=== PATIENT | female | born 1955 | race Caucasian/White ===

== ENCOUNTER 2023-10-20 01:55 | Inpatient (IN) | payer MEDICARE ==
[2023-10-20] MEDS ORDERED: NITROGLYCERIN SL TABS 0.4 MG TAB SUBLINGUAL PRN ×3 (01:58→03:49)
--- NOTE | 2023-10-20 02:00 | ED ---
Chest Pain HPI - General Stated Complaint: STEMI Time Seen by Provider: 10/20/23 01:58 - History of Present Illness Initial Comments: Patient is a 68-year-old female with a history of hypertension, hyperlipidemia, diabetes and obesity. Patient presents to the ER today via ambulance for STEMI. Patient woke from sleep with chest pain that radiated to her back, pain was severe associated with diaphoresis and lightheadedness. EMS was called and performed an EKG which was concerning for an anterior CO. Patient received aspirin and nitro with some improvement in her pain. Upon arrival to the ER patient is complaining of pain in her chest no longer having any pain in the back. - Related Data Allergies Allergy/AdvReac Type Severity Reaction Status Date / Time No Known Allergies Allergy Verified 10/20/23 02:02 Review of Systems ROS Statement: Those systems with pertinent positive or pertinent negative responses have been documented in the HPI. ROS Other: All systems not noted in ROS Statement are negative. EKG Findings - EKG Comments: EKG Findings:: EKG interpreted by me, EKG obtained at 2:02 AM, rate of 69 rhythm is sinus, PA 171 QRS 145 QTc 467. There are significant ST elevations in V2 through V6, no reciprocal ST depressions. There is a bifascicular block. This EKG is concerning for acute infarction. No previous EKG for comparison General Exam Limitations: no limitations General appearance: alert Head exam: Present: atraumatic, normocephalic Eye exam: Present: normal appearance ENT exam: Present: normal exam Neck exam: Present: normal inspection Respiratory exam: Absent: respiratory distress Cardiovascular Exam: Present: regular rate GI/Abdominal exam: Present: soft. Absent: distended Extremities exam: Present: full ROM, normal capillary refill. Absent: pedal edema Back exam: Present: normal inspection Neurological exam: Present: alert, oriented X3 Psychiatric exam: Present: normal affect, normal mood, other (Appropriate situational anxiety) Skin exam: Present: diaphoretic Course Vital Signs 10/20/23 10/20/23 01:57 02:02 Temperature 98.8 F Pulse Rate 80 73 Respiratory 20 18 Rate Blood Pressure 141/92 147/95 O2 Sat by Pulse 97 97 Oximetry Chest Pain MDM - Core Measures AMI Core Measures Followed: Yes - Differential Diagnosis AMI - MDM Was pt. sent in by a medical professional or institution (, PA, [employer], urgent care, hospital, or fdc...) When possible be specific @ -No Did you speak to anyone other than the patient for history (EMS, parent, family, police, friend...)? What history was obtained from this source @ -No Did you review nursing and triage notes (agree or disagree)? Why? @ -I reviewed and agree with nursing and triage notes Were old charts reviewed (outside hosp., previous admission, EMS record, old EKG, old radiological studies, urgent care reports/EKG's, fdc records)? Report findings @ -No old charts were reviewed Differential Diagnosis (chest pain, altered mental status, abdominal pain women, abdominal pain men, vaginal bleeding, weakness, fever, dyspnea, syncope, headache, dizziness, GI bleed, back pain, seizure, CVA, palpatations, mental health)? @ -Not applicable EKG interpreted by me (3pts min.). @ -As above X-rays interpreted by me (1pt min.). @ -No widened mediastinum no pneumothorax CT interpreted by me (1pt min.). @ -None done U/S interpreted by me (1pt. min.). @ -None done What testing was considered but not performed or refused? (CT, X-rays, U/S, labs)? Why? @ -None What meds were considered but not given or refused? Why? @ -None Did you discuss the management of the patient with other professionals (professionals i.e. , LACHELLE, [employer], lab, RT, psych nurse, 7th grade social studies teacher, basket person, teacher, electronic intelligence officer, shelter case manager)? Give summary @ -Discussed with concrete stone fabricating supervisor Dr. Gomes, [facility] Was smoking cessation discussed for >3mins.? @ -No Was critical care preformed (if so, how long)? @ -Yes 17 Were there social determinants of health that impacted care today? How? (Homelessness, low income, unemployed, alcoholism, drug addiction, transportati on, low edu. Level, literacy, decrease access to med. care, snf, rehab)? @ -No Was there de-escalation of care discussed even if they declined (Discuss DNR or withdrawal of care, Hospice)? DNR status @ -No What co-morbidities impacted this encounter? (DM, HTN, Smoking, COPD, CAD, Cancer, CVA, ARF, Chemo, Hep., AIDS, mental health diagnosis, sleep apnea, morbid obesity)? @ -Diabetes, hypertension, hyperlipidemia, obesity Was patient admitted / discharged? Hospital course, mention meds given and route, prescriptions, significant lab abnormalities, going to OR and other pertinent info. @ -Admit EMS transmitted EKG concerning for STEMI, findings were discussed with on-call concrete stone fabricating supervisor Dr. Gomes who recommends activation of the [employer] [employer] A code STEMI was called at 0141 and the crime lab analyst was activated. The patient was immediately placed in a monitored bed, and IV was placed prior to arrival, and the EKG was evaluated. The ECG revealed an acute ST elevation myocardial infarction. Defibrillator pads were placed on the patient. The patient was given Aspirin prior to arrival After a chest x-ray was performed which showed no mediastinal widening IV heparin was given based on the patients weight. The patient had normal hemodynamics during the ED course and was taken directly to the cardiac crime lab analyst. Team available in [facility] 3, heparin was initiated in the ER patient had received aspirin and nitro by EMS Patient awake alert oriented neurovascularly intact upon transport to [facility] Undiagnosed new problem with uncertain prognosis? @ -Yes Drug Therapy requiring intensive monitoring for toxicity (Heparin, Nitro, Insulin, Cardizem)? @ -Yes, heparin Were any procedures done? @ -No Diagnosis/symptom? @ -STEMI Acute, or Chronic, or Acute on Chronic? @ -Acute Uncomplicated (without systemic symptoms) or Complicated (systemic symptoms)? @ -Default Side effects of treatment? @ -No Exacerbation, Progression, or Severe Exacerbation? @ -No Poses a threat to life or bodily function? How? (Chest pain, [place], CO, pneumonia, PE, COPD, DKA, ARF, appy, cholecystitis, CVA, Diverticulitis, Homicidal, Suicidal, threat to staff... and all critical care pts) @ -Yes Disposition Clinical Impression: ST elevation myocardial infarction (STEMI) Disposition: ADMITTED IP TO THIS HOSP Condition: Serious Is patient prescribed a controlled substance at d/c from ED?: No
[2023-10-20] MEDS: HEPARIN SOD,PORK IN 0.45% NACL 25,000 UNIT in 0.45% NACL 1 250ML.BAG IV SCH (02:08)
[2023-10-20] MEDS: HEPARIN SODIUM 1,000 UN/ML (10ML VL) IV ONE ×2 (02:10→02:31)
[2023-10-20] MEDS ORDERED: LIDOCAINE 1% INJ 10MG/ML (20 ML MDV) ONE (02:19)
[2023-10-20] MEDS ORDERED: VERAPAMIL 2.5 MG/ML 2 ML AMP ONE (02:20)
[2023-10-20] MEDS ORDERED: fentaNYL (PF) 50 MCG/ML 2 ML AMP ONE (02:20)
--- NOTE | 2023-10-20 02:21 | XR ---
EXAMINATION TYPE: XR chest 1V portable DATE OF EXAM: 10/20/2023 COMPARISON: NONE HISTORY: Chest pain. TECHNIQUE: Single frontal view of the chest is obtained. FINDINGS: There is no focal air space opacity, pleural effusion, or pneumothorax seen. The cardiac silhouette size is within normal limits. The osseous structures are intact. Overlying EKG leads are seen. IMPRESSION: No acute process.
[2023-10-20] MEDS: LIDOCAINE 1% INJ 10MG/ML (20 ML MDV) SQ ONE (02:24)
[2023-10-20] MEDS: MIDAZOLAM 2 MG/2 ML VIAL IVP ONE ×2 (02:27→03:32)
[2023-10-20] MEDS: fentaNYL (PF) 50 MCG/ML 2 ML AMP IVP ONE (02:27)
[2023-10-20] MEDS: VERAPAMIL SYRINGE (5 MG/10 ML) INTRAARTER ONE (02:29)
[2023-10-20] MEDS ORDERED: HEPARIN SODIUM 1,000 UN/ML (10ML VL) ONE (02:31)
[2023-10-20] MEDS: SODIUM CHLORIDE 0.9% 1,000 ML IV ONE (02:34)
[2023-10-20] MEDS ORDERED: TICAGRELOR 90 MG TAB ONE (02:49)
[2023-10-20] MEDS: TICAGRELOR 90 MG TAB PO ONE (02:49)
[2023-10-20 02:53] LABS: Basophils % (A) 0 %; Eosinophils # (A) 0.4 k/uL (0-0.7); Eosinophils % (A) 3 %; HCT 34.4 % (34.0-46.0); HGB 11.5 gm/dL (11.4-16.0); Lymphocytes # (A) 2.7 k/uL (1.0-4.8); Lymphocytes % (A) 21 %; MCH 31.6 pg (25.0-35.0); MCHC 33.4 g/dL (31.0-37.0); MCV 94.5 fL (80.0-100.0); Mean Platelet Volume 7.7; Monocytes # (A) 0.7 k/uL (0-1.0); Monocytes % (A) 5 %; Neutrophils # (A) 8.9 k/uL (1.3-7.7); Neutrophils % (A) 69 %; Platelet Count 266 k/uL (150-450); RBC 3.64 m/uL (3.80-5.40); RDW 13.2 % (11.5-15.5)
[2023-10-20] MEDS: IOPAMIDOL-370 100ML BTL INJ ONE ×2 (02:58→03:43)
[2023-10-20 03:09] LABS: INR 1.2 (<1.2); Prothrombin Time 12.6 sec (10.0-12.5)
[2023-10-20 03:11] LABS: Partial Thromboplastin Time 20.8 sec (22.0-30.0)
[2023-10-20 03:34] LABS: ALT 16 U/L (4-34); AST 20 U/L (14-36); African American GFR (CKD) >90 (>60 ml/min/1.73 sqM); Albumin 3.6 g/dL (3.5-5.0); Alkaline Phosphatase 102 U/L (38-126); Anion Gap 10 mmol/L; Blood Urea Nitrogen 16 mg/dL (7-17); Calcium 8.6 mg/dL (8.4-10.2); Carbon Dioxide 17 mmol/L (22-30); Chloride 111 mmol/L (98-107); Glucose 244 mg/dL (74-99); Non-African American GFR(CKD) 87 (>60 ml/min/1.73 sqM); Potassium 3.5 mmol/L (3.5-5.1); Sodium 138 mmol/L (137-145); Total Bilirubin 0.7 mg/dL (0.2-1.3); Total Protein 6.6 g/dL (6.3-8.2)
[2023-10-20] MEDS ORDERED: niCARdipine 25 MG/10 ML VIAL ONE (03:35)
[2023-10-20] MEDS: niCARdipine Syringe (1,000 mcg/10 mL) INTRACORON ONE (03:36)
[2023-10-20] MEDS ORDERED: RX INFO: IV CONTRAST WAS GIVEN 1 EACH MISC MISCELLANE PRN (03:49)
[2023-10-20] MEDS ORDERED: ATROPINE SULFATE 0.1 MG/ML 10ML SYRINGE IV PRN (03:49)
[2023-10-20] MEDS ORDERED: MAG HYDROX/AL HYDROX/SIMETH 30 ML CUP PO PRN (03:49)
--- NOTE | 2023-10-20 03:59 | P.PCN ---
Date of Procedure: 10/20/23 Operative Findings: PERCUTANEOUS CORONARY INTERVENTION Performing physician Jose Plata M.D. Procedure Performed: 1. Successful stenting of the mid LAD using 4.0 x 18 mm Xience drug-eluting stent which was post dilated using 4.5 mm noncompliant balloon with an excellent angiographic results. 2. Successful stending of the proximal LAD using 5.0 x 18 mm Xience drug-eluting stent which was postdilated using 5.5 mm noncompliant balloon with an excellent angiographic result. 3. Adjunctive use of manual thrombectomy, mechanical thrombectomy, and intravascular imaging Indication: Acute anterior ST elevation myocardial infarction. Please refer to diagnosed sick heart catheterization was performed by Dr. Patel. The heart catheterization revealed occluded LAD in the proximal portion with a large thrombus burden Approach: Right radial artery Complications: None Level of Sedation: Moderate with a sedation length of 65 minutes Procedure Discussion: After diagnostic coronary angiogram was performed which revealed occluded LAD with a large thrombus burden the decision was made towards percutaneous coronary intervention. I engaged the left main using JL 3.5 guiding catheter. Before that anticoagulation was initiated using heparin with continuous ACT monitoring. After that I did wire the LAD and cross the acute total occlusion using a run- through wire and the wire was positioned in the apical part of the LAD. Balloon angioplasty was performed using 3 mm balloon was performed was no flow was restored in the LAD. At that point I decided to go ahead and do thrombectomy using manual thrombectomy catheter. In spite of that I was unable to restore any flow to the LAD. At that point I decided to do mechanical thrombectomy. After that I was able to restore the flow to the left anterior descending artery. Subsequently 2 lesions were identified. The first one was in the mid LAD was about 80% and the second one in the proximal LAD and that was about also 80%. Intravascular ultrasound was performed and showed a diameter of the LAD in the midportion around 4 mm and proximally about 5 mm. Giving the difference in diameter and the distance between the 2 lesion I decided to go with 2 stents. In the mid LAD I deployed a 4.0 x 18 mm and proximally 5.0 x 18 mm. Please note that balloon angioplasty again was performed before stent deployment using 3.5 mm balloon. Intravascular ultrasound was performed again and showed that the stents in the mid and proximal LAD well opposed but not well expanded. I decided to post-dilate. In the mid LAD I postdilated using 4.5 mm balloon and the proximal LAD I postdilated using 5.5 mm balloon. Angiogram was performed and showed that the contrast from the stented segment in the proximal LAD was taking a few seconds to clear. I did intravascular imaging again and that showed that the stent was well opposed and well expanded. The procedure was completed was no complication. Postprocedure Management: 1. Dual antiplatelet therapy using aspirin and Brilinta for 12 months 2. Aggressive cholesterol control and risk factors modification 3. Obtain an echo to establish ejection fraction
[2023-10-20 04:11] LABS: Glucose,Whole Blood 232 mg/dL (70-110)
[2023-10-20] MEDS ORDERED: NALOXONE 0.4 MG/ML 1 ML VIAL IV PRN (04:16)
[2023-10-20] MEDS: SODIUM CHLORIDE 0.9% 1,000 ML in EMPTY BAG 1 BAG IV SCH (04:52)
--- NOTE | 2023-10-20 05:10 | CC ---
CARDIAC CATHETERIZATION REPORT INDICATIONS: Acute anterior wall myocardial infarction. PROCEDURE NOTE: After obtaining informed consent, left heart catheterization and coronary angiogram were performed via the right radial artery using standard Vickie catheters. The patient tolerated the procedure well without any obvious immediate complications. The patient received moderate conscious sedation. Total sedation time was 11 minutes. Right radial artery access was obtained using Seldinger technique. A 6-Hebrew sheath was placed. Catheters and wires were floated into the ascending aorta under fluoroscopic guidance. The patient received verapamil and I gave her an additional 1500 units of heparin. She already received heparin in the ER. FINDINGS: 1. Hemodynamics: Left ventricular end-diastolic pressure is 24 mm. There is no significant gradient across the aortic valve. 2. Left ventriculogram: Left ventriculogram was not performed. 3. Angiographic data: a.Right coronary artery: Right coronary artery is a large dominant vessel and is free of stenosis. b.Left main coronary artery is a normal-sized vessel and is free of stenosis. Divides into left anterior descending coronary artery and circumflex coronary artery. LAD is totally occluded just past large caliber diagonal branch. Circumflex coronary artery and its branches are free of significant stenosis. CONCLUSIONS: 100% occlusion of the mid LAD. PLAN: The patient will undergo emergent angioplasty with stent placement. MMODL / IJN: [id number] /
--- NOTE | 2023-10-20 05:10 | CONS ---
CONSULTATION CHIEF COMPLAINT: Chest pain. HISTORY OF PRESENT ILLNESS: This is a 68-year-old lady with history of [id number]-dncnaltey diabetes, who presented to hospital with sudden-onset chest pain over 1 hour duration. An EKG sent from the field showed ST-segment elevation NJ in the anterior leads and STEMI team was alerted and activated. I saw the patient for the 1st time in the wetlands conservation laborer. She appears hemodynamically stable, but continues to have chest pressure that she describes it as 8/10 in intensity and she is anxious. There is no prior history of coronary artery disease or congestive heart failure. The patient's EKG shows anterior wall myocardial infarction. She was advised to undergo emergent cardiac catheterization and angioplasty. PAST MEDICAL HISTORY: Significant for [id number]-nsxblzeig diabetes. ALLERGIES: None. FAMILY HISTORY: Negative for premature coronary artery disease. SOCIAL HISTORY: Negative for smoking, EtOH abuse or drug abuse. MEDICATIONS: Medication list is as charted. REVIEW OF SYSTEMS: review of systems has been performed. Pertinent are as documented in history of present illness. PHYSICAL EXAMINATION: GENERAL: The patient appears anxious, but alert, stable hemodynamically. NECK: There is no jugular venous distention. Carotid upstroke is normal. There is no bruit. CHEST: Reveals good air entry bilaterally. HEART: Reveals first and second heart sounds. No gallop. No murmur. ABDOMEN: Soft. EXTREMITIES: Did not reveal any edema. Peripheral pulses are felt. ASSESSMENT: Acute anterior wall myocardial infarction. PLAN: She will undergo emergent cardiac catheterization and primary angioplasty. MMODL / IJN: [id number] /
--- NOTE | 2023-10-20 05:10 | LTR ---
Dear Leodan, I performed cardiac catheterization on Jael Vu. A detailed catheterization note is enclosed in records. In brief, she presents to us with acute anterior wall myocardial infarction at around 2:00 a.m. on October 20, 2023, and underwent expeditious and emergent cardiac catheterization by me that showed totally occluded LAD, which will be expeditiously stented. Thank you for allowing us to participate in the care of this pleasant lady. MMJOSSE / FREYAN: [id number] /
[2023-10-20 06:06] LABS: Basophils % (A) 0 %; Eosinophils # (A) 0.1 k/uL (0-0.7); Eosinophils % (A) 1 %; HCT 42.5 % (34.0-46.0); HGB 13.7 gm/dL (11.4-16.0); Lymphocytes % (A) 8 %; MCH 30.7 pg (25.0-35.0); MCHC 32.2 g/dL (31.0-37.0); MCV 95.2 fL (80.0-100.0); Mean Platelet Volume 7.7; Monocytes # (A) 0.4 k/uL (0-1.0); Monocytes % (A) 4 %; Neutrophils # (A) 10.4 k/uL (1.3-7.7); Neutrophils % (A) 86 %; Platelet Count 192 k/uL (150-450); RBC 4.47 m/uL (3.80-5.40); RDW 13.4 % (11.5-15.5); WBC 12.1 k/uL (3.8-10.6)
[2023-10-20 08:07] LABS: African American GFR (CKD) >90 (>60 ml/min/1.73 sqM); Anion Gap 8 mmol/L; Blood Urea Nitrogen 16 mg/dL (7-17); Calcium 9.4 mg/dL (8.4-10.2); Carbon Dioxide 18 mmol/L (22-30); Chloride 113 mmol/L (98-107); Glucose 235 mg/dL (74-99); Magnesium 2.1 mg/dL (1.6-2.3); Non-African American GFR(CKD) 89 (>60 ml/min/1.73 sqM); Potassium 4.4 mmol/L (3.5-5.1); Sodium 139 mmol/L (137-145)
[2023-10-20] MEDS: lisinopriL 5 MG TAB PO SCH (08:18)
[2023-10-20] MEDS: ASPIRIN 81 MG PO SCH (08:18)
[2023-10-20] MEDS: METOPROLOL TARTRATE 25 MG TAB PO SCH (08:18)
[2023-10-20] MEDS: TICAGRELOR 90 MG TAB PO SCH (08:18)
--- NOTE | 2023-10-20 12:33 | CA ---
Transthoracic Echo Report Name: Jael Vu Age: 68 Gender: F : 1955 Exam Date: 10/20/2023 08:53 Exam Location: [facility] Ht (in): 67 Wt (lb): 262 Ordering Physician: Jose Plata MD ([id number]) Attending/Referring Phys: Financial Compliance Manager Julianne Hernandez RDCS Procedure CPT: Indications: ACS Cardiac Hx: 2 atents Technical Quality: Fair Contrast 1: Total Dose (mL): Contrast 2: Total Dose (mL): MEASUREMENTS (Male / Female) Normal Values 2D ECHO LV Diastolic Diameter PLAX 4.6 cm 4.2 - 5.9 / 3.9 - 5.3 cm LV Systolic Diameter PLAX 3.9 cm IVS Diastolic Thickness 1.1 cm 0.6 - 1.0 / 0.6 - 0.9 cm LVPW Diastolic Thickness 1.2 cm 0.6 - 1.0 / 0.6 - 0.9 cm LV Relative Wall Thickness 0.5 RV Internal Dim ED PLAX 3.6 cm LA Systolic Diameter LX 4.3 cm 3.0 - 4.0 / 2.7 - 3.8 cm LV Diastolic Volume MOD 4C 137.5 cm??? LV Systolic Volume MOD 4C 90.5 cm??? LV Ejection Fraction MOD 4C 34.2 % LV Cardiac Index MOD 4C 1412.1 cm???/min???m??? LV Diastolic Length 4C 8.8 cm LV Systolic Length 4C 7.8 cm LV Diastolic Volume MOD 2C 129.3 cm??? LV Systolic Volume MOD 2C 64.7 cm??? LV Ejection Fraction MOD 2C 49.9 % LV Cardiac Index MOD 2C 1941.1 cm???/min???m??? LV Diastolic Length 2C 9.5 cm LV Systolic Length 2C 8.4 cm LA Volume 76.3 cm??? 18 - 58 / 22 - 52 cm??? LA Volume Index 31.4 cm???/m??? 16 - 28 cm???/m??? M-MODE Aortic Root Diameter MM 3.2 cm MV E Point Septal Separation 0.7 cm AV Cusp Separation MM 2.2 cm DOPPLER AV Peak Velocity 117.3 cm/s AV Peak Gradient 5.5 mmHg MV Area PHT 3.0 cm??? Mitral E Point Velocity 92.1 cm/s Mitral A Point Velocity 96.9 cm/s Mitral E to A Ratio 1.0 MV Deceleration Time 251.1 ms MV E' Velocity 6.7 cm/s Mitral E to MV E' Ratio 13.8 TR Peak Velocity 221.9 cm/s TR Peak Gradient 19.7 mmHg Right Ventricular Systolic Press 23.8 mmHg FINDINGS Left Ventricle Left ventricular ejection fraction is estimated at 35-40 %. Left ventricular cavity size normal. Mid to distal anterior and anterolateral and apical wall akinesia. Thinning of apical wall. Right Ventricle Mild right ventricular dilatation. Right ventricular systolic pressure within normal limits. Right Atrium Normal right atrial size. Left Atrium Mild left atrial dilatation Mitral Valve Structurally normal mitral valve. Mitral annular calcification. Mild mitral regurgitation. Aortic Valve Trileaflet aortic valve. No aortic valve stenosis or regurgitation. Tricuspid Valve Structurally normal tricuspid valve. Mild tricuspid regurgitation. Pulmonic Valve Structurally normal pulmonic valve. No pulmonic regurgitation. Pericardium No pericardial effusion. Aorta Normal size aortic root and proximal ascending aorta. CONCLUSIONS Left ventricular ejection fraction is estimated at 35-40 %. Mid to distal anterior and anterolateral and apical wall akinesia. Thinning of apical wall. Mild right ventricular dilatation. Mild left atrial dilatation. Mild mitral regurgitation. No pericardial effusion. Previewed by: Dr Romel Finley (Electronically Signed) Final Date: 20 October 2023 12:32
[2023-10-20] MEDS ORDERED: DEXTROSE 50% SYRINGE 50 ML IVP PRN ×2 (13:46)
[2023-10-20] MEDS ORDERED: METOCLOPRAMIDE 5 MG/ML 2 ML VIAL IVP PRN (13:48)
[2023-10-20] MEDS ORDERED: ACETAMINOPHEN TAB 325 MG TAB PO PRN (13:49)
[2023-10-20] MEDS: PANTOPRAZOLE 40 MG/10 ML VIAL IVP SCH (14:28)
[2023-10-20] MEDS: DAPAGLIFLOZIN PROPANEDIOL 10 MG TABLET PO SCH (14:29)
[2023-10-20] MEDS: ONDANSETRON 4 MG/2 ML VIAL IVP PRN (14:29)
[2023-10-20] MEDS: buPROPion XL 300 MG TAB.ER.24H PO SCH (14:29)
--- NOTE | 2023-10-20 14:43 | P.HPIM ---
History of Present Illness H&P Date: 10/20/23 This is a very pleasant 68-year-old female who presented to the emergency department via EMS with chest pain and diaphoresis. Patient reports over the last few days she has been having short episodic periods of chest heaviness with lightheadedness and back pain that radiates although subsided and initially contributed it to her chronic nausea and possibly acid reflux. Per EMS there was concerns of anterior myocardial infarction and patient presented to the emergency department and STEMI was activated and patient was brought to the [facility]. Patient reports she follows with Dr. Corrales in the outpatient setting with a past medical history of diabetes melitis, hyperlipidemia, pulmonary em bolism. Patient also reports she has chronic nausea and indigestion and a number of her diabetes medications because worsening symptoms and patient reports to being noncompliant. Patient was brought to the Clinical [facility] and underwent emergent successful stenting of the mid LAD as well as proximal LAD a nd also manual thrombectomy with mechanical thrombectomy. The heart catheterization initially showed an occluded LAD in the proximal portion with a large thrombus burden. Successful stenting per cardiology report and patient was sent to the ICU for continued close monitoring and IV heparin. On ED admission white blood count was mildly elevated at 13, likely reactive with a hemoglobin 11.5 and platelets were 266, sodium was 138 with a potassium of 4.5, BUN 16 and creatinine 0.72, glucose was 244, magnesium was 2.1, initial troponin was 0.042. Chest x-ray showed no acute process on admission. Patient had an echo done this morning postcardiac catheterization which showed an EF of approximately 35 to 40% with mid to distal anterior and anterior lateral apical wall akinesia and thinning of the apical wall with mild right ventricular dilatation with no pericardial effusion noted. REVIEW OF SYSTEMS: CONSTITUTIONAL: No fever, no malaise, reports of feeling fatigue and exhaustion over the last few weeks. HEENT: No recent visual problems or hearing problems. Denied any sore throat. CARDIOVASCULAR: No chest pain currently, denies orthopnea, PND, no palpitations, no syncope. PULMONARY: Reports occasional shortness of breath with exertion, no cough, no hemoptysis. GASTROINTESTINAL: No diarrhea, reports chronic nausea, no vomiting, no abdominal pain. NEUROLOGICAL: No headaches, no weakness, no numbness. HEMATOLOGICAL: Denies any bleeding or petechiae. GENITOURINARY: Denies any burning micturition, frequency, or urgency. MUSCULOSKELETAL/RHEUMATOLOGICAL: Denies any joint pain, swelling, or any muscle pain. ENDOCRINE: Denies any polyuria or polydipsia. The rest of the 14-point review of systems is negative. PHYSICAL EXAMINATION: GENERAL: The patient is alert and oriented x3. Well developed, well nourished. Morbidly obese HEENT: Pupils are round and equally reacting to light. EOMI. No scleral icterus. No conjunctival pallor. Normocephalic, atraumatic. No pharyngeal erythema. No thyromegaly. CARDIOVASCULAR: S1 and S2 muffled, sinus rhythm on the monitor PULMONARY: Chest is clear to auscultation, no wheezing or crackles. ABDOMEN: Soft, obese. Nontender, nondistended, normoactive bowel sounds. No palpable organomegaly. MUSCULOSKELETAL: No joint swelling or deformity. EXTREMITIES: No cyanosis, clubbing, or pedal edema. NEUROLOGICAL: Gross neurological examination did not reveal any focal deficits. SKIN: No rashes. Assessment: Chest pain, acute stemi status post successful stenting of the mid and proximal LAD with thrombectomy History of diabetes mellitus, uncontrolled with hyperglycemia Hyperlipidemia History of pulmonary embolism Morbid obesity with a BMI of 41.0 GI prophylaxis DVT prophylaxis Full code Plan: Patient underwent cardiac catheterization along with PCI stenting to the mid and proximal LAD this morning. Patient is continued on IV heparin with cardiology following closely and transitioning to aspirin and Brilinta Patient to continue in the ICU on telemetry monitoring Continue monitoring Accu-Cheks before meals and at bedtime and will continue with sliding scale Patient has chronic nausea and reports she is extremely sensitive to medications including her insulins of Victoza and Jardiance Recommend diabetes education outpatient and risk factor modification education Will add Zofran and Reglan as needed as well as IV Protonix twice daily Will discuss further with cardiology on discharge planning The impression and plan of care has been dictated by Halima Argueta, Nurse Practitioner as directed. Dr. Tash MD I have performed a history and examination and MDM of this patient, discussed the same with the dictator, and agree with the dictator's assessment and plan as written ,documented as a scribe. Based on total visit time, I have performed more than 50% of the visit. Past Medical History Past Medical History: Diabetes Mellitus, Hyperlipidemia, Pulmonary Embolus (PE) History of Any Multi-Drug Resistant Organisms: None Reported Past Surgical History: No Surgical Hx Reported Past Psychological History: No Psychological Hx Reported Smoking Status: Never smoker Past Alcohol Use History: None Reported Past Drug Use History: None Reported Medications and Allergies Home Medications Medication Instructions Recorded Confirmed Type Apixaban [Eliquis] 5 mg PO BID 10/20/23 10/20/23 History Aspirin EC [Ecotrin Low Dose] 81 mg PO DAILY 10/20/23 10/20/23 History Dulaglutide [Trulicity] 0.75 mg SQ Q7D 10/20/23 10/20/23 History Empagliflozin [Jardiance] 25 mg PO DAILY 10/20/23 10/20/23 History Latanoprost [Latanoprost 0.005%] 1 drop BOTH EYES HS 10/20/23 10/20/23 History Losartan [Cozaar] 25 mg PO DAILY 10/20/23 10/20/23 History Omeprazole [PriLOSEC] 20 mg PO DAILY 10/20/23 10/20/23 History Simvastatin [Zocor] 20 mg PO HS 10/20/23 10/20/23 History buPROPion XL [Wellbutrin XL] 300 mg PO DAILY 10/20/23 10/20/23 History rOPINIRole HCL [Requip] 0.25 mg PO HS 10/20/23 10/20/23 History Allergies Allergy/AdvReac Type Severity Reaction Status Date / Time No Known Allergies Allergy Verified 10/20/23 02:02 Physical Exam Vitals: Vital Signs Temp Pulse Pulse Resp BP BP Pulse Ox 10/20/23 09:00 71 12 127/81 97 10/20/23 08:00 98.2 F 71 14 136/69 97 10/20/23 07:00 72 12 128/72 98 10/20/23 06:50 70 11 L 128/72 98 10/20/23 06:40 71 11 L 139/81 97 10/20/23 06:30 72 9 L 148/70 98 10/20/23 06:20 73 18 148/70 98 10/20/23 06:10 72 20 149/78 98 10/20/23 06:00 74 15 158/83 98 10/20/23 05:50 6 L 158/83 98 10/20/23 05:40 69 14 140/80 99 10/20/23 05:30 73 14 133/81 99 02/24 05:20 70 16 133/81 98 10/20/23 05:10 72 5 L 128/91 99 10/20/23 05:00 73 14 133/70 99 10/20/23 04:50 70 15 133/70 98 10/20/23 04:40 66 10 L 136/75 98 10/20/23 04:30 65 28 H 141/72 98 10/20/23 04:20 70 14 141/72 98 10/20/23 04:10 71 49 H 142/106 10/20/23 04:06 76 10/20/23 02:40 98 F 69 16 133/70 98 10/20/23 02:02 73 18 147/95 97 10/20/23 01:57 98.8 F 80 20 141/92 97 Intake and Output 10/19/23 10/20/23 10/20/23 22:59 06:59 14:59 Intake Total 625 278.726 Output Total 300 500 Balance 325 -221.274 Intake: IV 625 225 Sodium Chloride 0.9% 1, 225 225 000 ml In Empty Bag 1 bag @ 75 mls/hr IV .[id number] [facility] Rx#:[id number] Intake, IV Titration 53.726 Amount Heparin Sod,Pork in 0.45% 53.726 NaCl 25,000 unit In 0.45 % NaCl 1 250ml.bag @ 8. 427 UNITS/KG/HR 10.011 mls/hr IV .Q24H [facility] Rx#: [id number] Output: Urine 300 500 Other: Voiding Method Bedpan # Voids 1 Weight 118.841 kg Results CBC & Chem 7: 10/20/23 05:42 10/20/23 05:42 Labs: Abnormal Lab Results - Last 24 Hours (Table) 10/20/23 10/20/23 10/20/23 Range/Units 02:25 02:25 02:25 WBC 13.0 H (3.8-10.6) k/uL RBC 3.64 L (3.80-5.40) m/uL Neutrophils # 8.9 H (1.3-7.7) k/uL PT 12.6 H (10.0-12.5) sec INR 1.2 H (<1.2) APTT 20.8 L (22.0-30.0) sec Chloride 111 H (98-107) mmol/L Carbon Dioxide 17 L (22-30) mmol/L Glucose 244 H (74-99) mg/dL POC Glucose (mg/dL) (70-110) mg/dL Troponin I (0.000-0.034) ng/mL 10/20/23 10/20/23 10/20/23 Range/Units 02:25 04:09 05:42 WBC (3.8-10.6) k/uL RBC (3.80-5.40) m/uL Neutrophils # (1.3-7.7) k/uL PT (10.0-12.5) sec INR (<1.2) APTT (22.0-30.0) sec Chloride (98-107) mmol/L Carbon Dioxide (22-30) mmol/L Glucose (74-99) mg/dL POC Glucose (mg/dL) 232 H (70-110) mg/dL Troponin I 0.042 H* 56.700 H* (0.000-0.034) ng/mL 10/20/23 10/20/23 10/20/23 Range/Units 05:42 05:42 08:03 WBC 12.1 H (3.8-10.6) k/uL RBC (3.80-5.40) m/uL Neutrophils # 10.4 H (1.3-7.7) k/uL PT (10.0-12.5) sec INR (<1.2) APTT (22.0-30.0) sec Chloride 113 H (98-107) mmol/L Carbon Dioxide 18 L (22-30) mmol/L Glucose 235 H (74-99) mg/dL POC Glucose (mg/dL) (70-110) mg/dL Troponin I >80.000 H* (0.000-0.034) ng/mL Thrombosis Risk Factor Assmnt - Choose All That Apply Any of the Below Risk Factors Present?: Yes Each Factor Represents 1 point: Acute AR, Heart failure (<1month) Each Risk Factor Represents 2 Points: Age 61-74 years Thrombosis Risk Factor Assessment Total Risk Factor Score: 4 Thrombosis Risk Factor Assessment Level: Moderate Risk
[2023-10-20 17:01] LABS: Glucose,Whole Blood 152 mg/dL (70-110)
[2023-10-20] MEDS: INSULIN ASPART (NovoLOG) 100 UNIT/ML VIAL SQ SCH (17:02)
[2023-10-20 20:10] LABS: Glucose,Whole Blood 184 mg/dL (70-110)
[2023-10-20] MEDS: ATORVASTATIN 80 MG TAB PO SCH (20:48)
[2023-10-20] MEDS: LATANOPROST 0.005% OPHTH DROPS 2.5 ML BTL BOTH EYES SCH (20:49)
[2023-10-20] MEDS ORDERED: ALPRAZolam 0.25 MG TAB PO PRN (21:51)
[2023-10-20] MEDS: ZOLPIDEM 5 MG TAB PO PRN (23:10)
[2023-10-21 04:55] LABS: Basophils % (A) 0 %; Eosinophils # (A) 0.2 k/uL (0-0.7); Eosinophils % (A) 3 %; HGB 12.5 gm/dL (11.4-16.0); Lymphocytes # (A) 1.5 k/uL (1.0-4.8); Lymphocytes % (A) 22 %; MCH 31.9 pg (25.0-35.0); MCHC 33.7 g/dL (31.0-37.0); MCV 94.6 fL (80.0-100.0); Mean Platelet Volume 7.6; Monocytes # (A) 0.5 k/uL (0-1.0); Monocytes % (A) 8 %; Neutrophils # (A) 4.6 k/uL (1.3-7.7); Neutrophils % (A) 65 %; Platelet Count 200 k/uL (150-450); RBC 3.91 m/uL (3.80-5.40); RDW 13.3 % (11.5-15.5)
[2023-10-21 05:07] LABS: African American GFR (CKD) 75 (>60 ml/min/1.73 sqM); Anion Gap 5 mmol/L; Blood Urea Nitrogen 12 mg/dL (7-17); Calcium 8.4 mg/dL (8.4-10.2); Carbon Dioxide 24 mmol/L (22-30); Chloride 110 mmol/L (98-107); Glucose 154 mg/dL (74-99); Non-African American GFR(CKD) 65 (>60 ml/min/1.73 sqM); Potassium 4.2 mmol/L (3.5-5.1); Sodium 139 mmol/L (137-145)
[2023-10-21 06:35] LABS: Glucose,Whole Blood 133 mg/dL (70-110)
[2023-10-21 08:11] VITALS: BMI 41.0
[2023-10-21 09:19] LABS: Chol/HDL Ratio 2.85 Ratio; LDL Cholesterol,Calculated 63.2 mg/dL (0.0-131.0); VLDL Calculation 19.86 mg/dL (5.00-40.00)
[2023-10-21 11:14] LABS: Glucose,Whole Blood 194 mg/dL (70-110)
[2023-10-21] MEDS: ASPIRIN 325 MG TAB PO SCH (11:27)
[2023-10-21 16:37] LABS: Glucose,Whole Blood 161 mg/dL (70-110)
[2023-10-21] MEDS: PANTOPRAZOLE 40 MG TABLET PO SCH (16:42)
--- NOTE | 2023-10-21 18:04 | P.PN ---
Subjective HISTORY OF PRESENTING ILLNESS Patient is a pleasant 68-year-old female with a history of ubx-rgtlnew-uhluqqsus dependent diabetes, hypertension who presented with anterior chest pain and found have anterior ND and underwent stenting 10/20. Patient denies any further chest pain. Echocardiogram shows EF 35-40%. No significant arrhythmias noted on telemetry. Patient is concerned as she had prior stress testing approximately 5 months ago however discussed usual acute nature of acute ND. PHYSICAL EXAMINATION Vital signs reviewed. CONSTITUTIONAL: No apparent distress. HEENT: Head is normocephalic. Pupils are equal, round. Sclerae anicteric. Mucous membranes of the mouth are moist. No JVD. No carotid bruit. CHEST EXAMINATION: Lungs are clear to auscultation. No chest wall tenderness is noted on palpation or with deep breathing. HEART EXAMINATION: Regular rate and rhythm. S1, S2 heard. No murmurs, gallops or rub. ABDOMEN: Soft, nontender. Positive bowel sounds. EXTREMITIES: 2+ peripheral pulses, no lower extremity edema and no calf te nderness. NEUROLOGIC EXAMINATION: Patient is awake, alert and oriented x3. ASSESSMENT Acute anterior ND status post PCI of LAD Ischemic cardiopathy EF 35-40% Diabetes mellitus type 2 hypertension hyperlipidemia, History of pulmonary embolism Morbid obesity PLAN Appears to be recovering well. Continue with aspirin, Lipitor, Brillinta. Optimize heart failure regimen as able and continue with lisinopril as well as metoprolol. Continue with RCA. Ideally Aldactone however monitor blood pressu re. Appears stable for discharge from ICU. Objective - Vital Signs Vital signs: Vital Signs Temp 98.0 F 10/21/23 16:00 Pulse 60 10/21/23 16:00 Resp 20 10/21/23 16:00 BP 97/49 10/21/23 16:00 Pulse Ox 97 10/21/23 16:00 FiO2 Intake & Output 10/20/23 10/21/23 10/21/23 18:59 06:59 18:59 Intake Total 803.726 70 10 Output Total 500 0 0 Balance 303.726 70 10 Weight 118.841 kg Intake: IV 750 70 10 Sodium Chloride 0.9% 1, 750 70 10 000 ml In Empty Bag 1 bag @ 75 mls/hr IV .[id number] [facility] Rx#:[id number] Intake, IV Titration 53.726 Amount Heparin Sod,Pork in 0.45% 53.726 NaCl 25,000 unit In 0.45 % NaCl 1 250ml.bag @ 8. 427 UNITS/KG/HR 10.011 mls/hr IV .Q24H [facility] Rx#: [id number] Output: Urine 500 0 0 Other: Voiding Method Bedpan # Voids 1 1 0 - Labs CBC & Chem 7: 10/21/23 04:32 10/21/23 04:32 Labs: Abnormal Lab Results - Last 24 Hours (Table) 10/20/23 10/21/23 10/21/23 Range/Units 20:09 04:32 04:32 Chloride 110 H (98-107) mmol/L Glucose 154 H (74-99) mg/dL POC Glucose (mg/dL) 184 H (70-110) mg/dL Hemoglobin A1c 8.4 H (<=6.0) % 10/21/23 10/21/23 10/21/23 Range/Units 06:33 11:13 16:35 Chloride (98-107) mmol/L Glucose (74-99) mg/dL POC Glucose (mg/dL) 133 H 194 H 161 H (70-110) mg/dL Hemoglobin A1c (<=6.0) %
[2023-10-21 20:40] LABS: Glucose,Whole Blood 182 mg/dL (70-110)
[2023-10-22 04:52] VITALS: TEMP 97.9
[2023-10-22 06:02] LABS: Glucose,Whole Blood 148 mg/dL (70-110)
--- NOTE | 2023-10-22 08:25 | P.PN ---
Subjective Progress Note Date: 10/21/23 This is a very pleasant 68-year-old female who presented to the emergency department via EMS with chest pain and diaphoresis. Patient reports over the last few days she has been having short episodic periods of chest heaviness with lightheadedness and back pain that radiates although subsided and initially contributed it to her chronic nausea and possibly acid reflux. Per EMS there was concerns of anterior myocardial infarction and patient presented to the emergency department and STEMI was activated and patient was brought to the [facility]. Patient reports she follows with Dr. Corrales in the outpatient setting with a past medical history of diabetes melitis, hyperlipidemia, pulmonary embolism. Patient also reports she has chronic nausea and indigestion and a number of her diabetes medications because worsening symptoms and patient reports to being noncompliant. Patient was brought to the [facility] and underwent emergent successful stenting of the mid LAD as well as proximal LAD and also manual thrombectomy with mechanical thrombectomy. The heart catheterization initially showed an occluded LAD in the proximal portion with a large thrombus burden. Successful stenting per cardiology report and patient was sent to the ICU for continued close monitoring and IV heparin. On ED admis ashleigh white blood count was mildly elevated at 13, likely reactive with a hemoglobin 11.5 and platelets were 266, sodium was 138 with a potassium of 4.5, BUN 16 and creatinine 0.72, glucose was 244, magnesium was 2.1, initial troponin was 0.042. Chest x-ray showed no acute process on admission. Patient had an echo done this morning postcardiac catheterization which showed an EF of approximately 35 to 40% with mid to distal anterior and anterior lateral apical wall akinesia and thinning of the apical wall with mild right ventricular dilatation with no pericardial effusion noted. 10/21/2023 Patient is seen in follow-up continues to be in the ICU cardio following closely status postcardiac catheterization. Patient reports feeling well with no overnight arrhythmias or issues noted. Patient denies chest pain currently. Patient is tolerating diet and blood sugars have been well-controlled on current regimen. Patient is a transfer out of the ICU today with continued telemetry monitoring. Will need to discuss further with cardiology on discharge planning. Encouraged to increase activity as tolerated. Review of systems: Constitutional: No reports of fatigue, fever, or chills Cardiovascular: No reports of chest pain or palpitations Respiratory: No reports of shortness of breath or cough GI: No reports of nausea, vomiting, or diarrhea : No reports of dysuria or retention Neurovascular: No reports of weakness or numbness All medications have been reviewed PHYSICAL EXAMINATION: GENERAL: The patient is alert and oriented x3. Well developed, well nourished. Morbidly obese HEENT: Pupils are round and equally reacting to light. EOMI. No scleral icterus. No conjunctival pallor. Normocephalic, atraumatic. No pharyngeal erythema. No thyromegaly. CARDIOVASCULAR: S1 and S2 muffled, sinus rhythm on the monitor PULMONARY: Chest is clear to auscultation, no wheezing or crackles. ABDOMEN: Soft, obese. Nontender, nondistended, normoactive bowel sounds. No palpable organomegaly. MUSCULOSKELETAL: No joint swelling or deformity. EXTREMITIES: No cyanosis, clubbing, or pedal edema. NEUROLOGICAL: Gross neurological examination did not reveal any focal deficits. SKIN: No rashes. Assessment: Chest pain, acute stemi status post successful stenting of the mid and proximal LAD with thrombectomy History of diabetes mellitus, uncontrolled with hyperglycemia Hyperlipidemia History of pulmonary embolism Morbid obesity with a BMI of 41.0 GI prophylaxis DVT prophylaxis Full code Plan: Patient underwent cardiac catheterization along with PCI stenting to the mid and proximal LAD . Patient is continued on aspirin and Brilinta Patient to continue with telemetry monitoring Continue monitoring Accu-Cheks before meals and at bedtime and will continue with sliding scale Patient has chronic nausea and reports she is extremely sensitive to medications including her insulins of Victoza and Jardiance Recommend diabetes education outpatient and risk factor modification education Continue as needed Zofran and Reglan as well as IV Protonix twice daily Patient is a transfer out of the ICU today to the stepdown unit and will discuss further with cardiology on discharge planning Possible discharge planning in the next 24 to 48 hours The impression and plan of care has been dictated by Halima Argueta Nurse Practitioner as directed. Dr. Jennifer MD I have performed a history and examination and MDM of this patient, discussed the same with the dictator, and agree with the dictator's assessment and plan as written ,documented as a scribe. Based on total visit time, I have performed more than 50% of the visit. Objective - Vital Signs Vital signs: Vital Signs Temp 97.8 F 10/21/23 08:00 Pulse 59 L 10/21/23 09:00 Resp 20 10/21/23 09:00 BP 98/68 10/21/23 09:00 Pulse Ox 98 10/21/23 09:00 FiO2 Intake & Output 10/20/23 10/21/23 10/21/23 18:59 06:59 18:59 Intake Total 803.726 70 10 Output Total 500 0 0 Balance 303.726 70 10 Weight 118.841 kg Intake: IV 750 70 10 Sodium Chloride 0.9% 1, 750 70 10 000 ml In Empty Bag 1 bag @ 75 mls/hr IV .[id number] [facility] Rx#:[id number] Intake, IV Titration 53.726 Amount Heparin Sod,Pork in 0.45% 53.726 NaCl 25,000 unit In 0.45 % NaCl 1 250ml.bag @ 8. 427 UNITS/KG/HR 10.011 mls/hr IV .Q24H [facility] Rx#: [id number] Output: Urine 500 0 0 Other: # Voids 1 1 0 - Labs CBC & Chem 7: 10/21/23 04:32 10/21/23 04:32 Labs: Abnormal Lab Results - Last 24 Hours (Table) 10/20/23 10/20/23 10/21/23 Range/Units 16:59 20:09 04:32 Chloride (98-107) mmol/L Glucose (74-99) mg/dL POC Glucose (mg/dL) 152 H 184 H (70-110) mg/dL Hemoglobin A1c 8.4 H (<=6.0) % 10/21/23 10/21/23 Range/Units 04:32 06:33 Chloride 110 H (98-107) mmol/L Glucose 154 H (74-99) mg/dL POC Glucose (mg/dL) 133 H (70-110) mg/dL Hemoglobin A1c (<=6.0) %
[2023-10-22 09:32] LABS: Basophils % (A) 0 %; Eosinophils # (A) 0.2 k/uL (0-0.7); Eosinophils % (A) 4 %; HCT 40.6 % (34.0-46.0); HGB 13.1 gm/dL (11.4-16.0); Lymphocytes # (A) 1.3 k/uL (1.0-4.8); Lymphocytes % (A) 19 %; MCH 31.6 pg (25.0-35.0); MCHC 32.3 g/dL (31.0-37.0); MCV 97.6 fL (80.0-100.0); Mean Platelet Volume 7.9; Monocytes # (A) 0.5 k/uL (0-1.0); Monocytes % (A) 8 %; Neutrophils # (A) 4.5 k/uL (1.3-7.7); Neutrophils % (A) 67 %; Platelet Count 181 k/uL (150-450); RBC 4.16 m/uL (3.80-5.40); RDW 13.3 % (11.5-15.5); WBC 6.7 k/uL (3.8-10.6)
[2023-10-22 10:05] LABS: African American GFR (CKD) 75 (>60 ml/min/1.73 sqM); Anion Gap 6 mmol/L; Blood Urea Nitrogen 15 mg/dL (7-17); Calcium 8.5 mg/dL (8.4-10.2); Carbon Dioxide 20 mmol/L (22-30); Chloride 111 mmol/L (98-107); Glucose 172 mg/dL (74-99); Non-African American GFR(CKD) 65 (>60 ml/min/1.73 sqM); Sodium 137 mmol/L (137-145)
--- NOTE | 2023-10-22 10:24 | P.PN ---
Subjective Progress Note Date: 10/22/23 HISTORY OF PRESENTING ILLNESS Patient is a pleasant 68-year-old female with a history of vbf-hgnxibz-lgvwximpt dependent diabetes, hypertension who presented with anterior chest pain and found have anterior OR and underwent stenting 10/20. Patient denies any further chest pain. Echocardiogram shows EF 35-40%. No significant arrhythmias noted on telemetry. Patient is concerned as she had prior stress testing approximately 5 months ago however discussed usual acute nature of acute OR. 10/22 Patient is seen today on the cardiac stepdown unit. She has been maintained on aspirin, Lipitor, Brilinta, farxiga, lisinopril and metoprolol. Plan is to optimize heart failure regime as tolerated. Blood pressures remain soft 98/55, heart rate in the 60s, pulse ox 97% on room air. No c/o chest pain. PHYSICAL EXAMINATION Vital signs reviewed. CONSTITUTIONAL: No apparent distress. HEENT: Head is normocephalic. Pupils are equal, round. Sclerae anicteric. Mucous membranes of the mouth are moist. No JVD. No carotid bruit. CHEST EXAMINATION: Lungs are clear to auscultation. No chest wall tenderness is noted on palpation or with deep breathing. HEART EXAMINATION: Regular rate and rhythm. S1, S2 heard. No murmurs, gallops or rub. ABDOMEN: Soft, nontender. Positive bowel sounds. EXTREMITIES: 2+ peripheral pulses, no lower extremity edema and no calf tenderness. NEUROLOGIC EXAMINATION: Patient is awake, alert and oriented x3. ASSESSMENT Acute anterior OR status post PCI of LAD Ischemic cardiopathy EF 35-40% Diabetes mellitus type 2 hypertension hyperlipidemia, History of pulmonary embolism Morbid obesity PLAN Appears to be recovering well. Continue with aspirin, Lipitor, Brillinta, farxiga, lisinopril as well as metoprolol. Patient is cleared for discharge and may follow up with Dr. Erazo in 1-2 weeks. Nurse practitioner note has been reviewed, I agree with documented findings and plan of care. Patient was seen and examined. Objective - Vital Signs Vital signs: Vital Signs Temp 97.9 F 10/22/23 04:00 Pulse 63 10/22/23 04:00 Resp 17 10/22/23 04:00 BP 98/55 10/22/23 04:00 Pulse Ox 97 10/22/23 04:00 FiO2 Intake & Output 10/21/23 10/22/23 10/22/23 18:59 06:59 18:59 Intake Total 10 120 Output Total 0 Balance 10 120 Weight 118.841 kg Intake: IV 10 Sodium Chloride 0.9% 1, 10 000 ml In Empty Bag 1 bag @ 75 mls/hr IV .[id number] [facility] Rx#:[id number] Oral 120 Output: Urine 0 Other: Voiding Method Bedpan Toilet # Voids 0 2 - Labs CBC & Chem 7: 10/22/23 07:49 10/22/23 07:49 Labs: Abnormal Lab Results - Last 24 Hours (Table) 10/21/23 10/21/23 10/21/23 Range/Units 11:13 16:35 20:39 POC Glucose (mg/dL) 194 H 161 H 182 H (70-110) mg/dL 10/22/23 Range/Units 06:00 POC Glucose (mg/dL) 148 H (70-110) mg/dL
[2023-10-22 11:32] VITALS: BP 93/60; PULSE 58; RESP 17
[2023-10-22 11:41] LABS: Glucose,Whole Blood 196 mg/dL (70-110)
--- NOTE | 2023-10-25 11:24 | CDI ---
Documentation Clarification Form Date: 10/25/2023 11:13:30 AM From: Leeanne Torres Phone: Admit Date: 10/20/2023 02:05:00 AM Patient Name: Jael Vu Visit Number: [id number] Discharge Date: 10/22/2023 03:37:00 PM ATTENTION: The Clinical Documentation Specialists (CDI) and [facility] Coding Staff appreciate your assistance in clarifying documentation. Please respond to the clarification below the line at the bottom and electronically sign. The CDI & [facility] Coding staff will review the response and follow-up if needed. Please note: Queries are made part of the Legal Health Record. If you have any questions, please contact the author of this message via ITS. Dr. Boy Erazo Your patient has the documented diagnosis of unspecified CHF per Progress Note 2/3. Additional information regarding the type and acuity of CHF is requested. History/Risk Factors: 68yo F, anterior STEMI sp stent, ICM, NIDDMII w hyperglycemia, HTN, HLD, Hx PE, morbid obesity, bifascicular block Clinical Indicators: VS/Pulse OX: 97-99% Echocardiogram Results: LV EF is estimated at 35-40 %. Mid to distal anterior and anterolateral and apical wallakinesia. Thinning of apical wall. Mild RVdilatation. Mild left atrialdilatation. MildMR. Nopericardial effusion. Chest x ray: There isnofocal air spaceopacity,pleural effusion, or pneumothoraxseen. The cardiac silhouette size is within normal limits. The osseous structures are intact. Overlying EKG leads are seen. Treatment: She has been maintained on aspirin, Lipitor, Brilinta, farxiga, Lisinopril and metoprolol. Plan is to optimize heart failure regime as tolerated. Bloodpressuresremain soft 98/55, heart rate in the 60s, pulse ox 97% on room air. No c/oCP. In your professional opinion, can you please clarify the type and acuity of CHF if known? [ X ] Acute Systolic Heart Failure (reduced EF) [ ] Chronic Systolic Heart Failure (reduced EF) [ ] Acute on Chronic Systolic Heart Failure (reduced EF) [ ] Acute Diastolic Heart Failure (preserved EF) [ ] Chronic Diastolic Heart Failure (preserved EF) [ ] Acute on Chronic Diastolic Heart Failure (preserved EF) [ ] Acute Systolic & Diastolic Heart Failure [ ] Chronic Systolic & Diastolic Heart Failure [ ] Acute on Chronic Heart Failure Systolic & Diastolic Heart Failure [ ] Other, please specify [ ] Unable to determine (Template Last Revised: October 2020) MTDD
--- NOTE | 2023-10-27 11:58 | CDI ---
Documentation Clarification Form Date: 10/27/2023 11:50:27 AM From: Leeanne Torres Admit Date: 10/20/2023 02:05:00 AM Patient Name: Jael Vu Visit Number: [id number] Discharge Date: 10/22/2023 03:37:00 PM ATTENTION: The Clinical Documentation Specialists (CDI) and [facility] Coding Staff appreciate your assistance in clarifying documentation. Please respond to the clarification below the line at the bottom and electronically sign. The CDI & [facility] Coding staff will review the response and follow-up if needed. Please note: Queries are made part of the Legal Health Record. If you have any questions, please contact the author of this message via ITS. Dr. Boy Erazo Your patient has the documented diagnosis of unspecified CHF per Progress Note 2/3. Additional information regarding the type of CHF is requested. History/Risk Factors: 68yo F, anterior STEMI sp stent, ICM, NIDDMII w hyperglycemia, HTN, HLD, Hx PE, morbid obesity, bifascicular block Clinical Indicators: VS/Pulse OX: 97-99% Echocardiogram Results: LV EF is estimated at 35-40 %. Mid to distal anterior and anterolateral and apical wall akinesia. Thinning of apical wall. Mild RV dilatation. Mild left atrial dilatation. Mild MR. No pericardial effusion. Chest x ray: There is no focal air space opacity, pleural effusion, or pneumothorax seen. The cardiac silhouette size is within normal limits. The osseous structures are intact. Overlying EKG leads are seen. Treatment: She has been maintained on aspirin, Lipitor, Brilinta, farxiga, Lisinopril and metoprolol. In your professional opinion, can you please clarify the type and acuity of CHF, if known? [X ] Chronic Systolic Heart Failure (reduced EF) [ ] Chronic Diastolic Heart Failure (preserved EF) [ ] Chronic Systolic Diastolic Heart Failure [ ] Other, please specify [ ] Unable to determine MTDD
--- NOTE | 2023-11-07 21:31 | P.DS ---
Providers Date of admission: 10/20/23 02:05 Expected date of discharge: 10/22/23 Attending physician: Ifrah Munson Consults: 10/20/23 02:05 Consult Physician Urgent Consulting Provider: Yahir Patel Consult Reason/Comments: stemi Do you want consulting provider notified?: Already Contacted 10/20/23 03:49 Consult Physician Routine Consulting Provider: [facility] Consult Reason/Comments: Post Interventional patient Do you want consulting provider notified?: Already Contacted Primary care physician: Leodan Corrales Hospital Course: Discharge diagnosis Chest pain, acute stemi status post successful stenting of the mid and proximal LAD with thrombectomy History of diabetes mellitus, uncontrolled with hyperglycemia Hyperlipidemia History of pulmonary embolism Morbid obesity with a BMI of 41.0 GI prophylaxis DVT prophylaxis Full code Hospital course This is a very pleasant 68-year-old female who presented to the emergency department via EMS with chest pain and diaphoresis. Patient reports over the last few days she has been having short episodic periods of chest heaviness with lightheadedness and back pain that radiates although subsided and initially contributed it to her chronic nausea and possibly acid reflux. Per EMS there was concerns of anterior myocardial infarction and patient presented to the emergency department and STEMI was activated and patient was brought to the Regional Coordinator. Patient reports she follows with Dr. Corrales in the outpatient setting with a past medical history of diabetes melitis, hyperlipidemia, pulmonary embolism. Patient also reports she has chronic nausea and indigestion and a number of her diabetes medications because worsening symptoms and patient reports to being noncompliant. Patient was brought to the Regional Coordinator and underwent emergent successful stenting of the mid LAD as well as proximal LAD and also manual thrombectomy with mechanical thrombectomy. The heart catheterization initially showed an occluded LAD in the proximal portion with a large thrombus burden. Successful stenting per cardiology report and patient was sent to the ICU for continued close monitoring and IV heparin. On ED admis ashleigh white blood count was mildly elevated at 13, likely reactive with a hemoglobin 11.5 and platelets were 266, sodium was 138 with a potassium of 4.5, BUN 16 and creatinine 0.72, glucose was 244, magnesium was 2.1, initial troponin was 0.042. Chest x-ray showed no acute process on admission. Patient had an echo done this morning postcardiac catheterization which showed an EF of approximately 35 to 40% with mid to distal anterior and anterior lateral apical wall akinesia and thinning of the apical wall with mild right ventricular dilatation with no pericardial effusion noted. 10/21/2023 Patient is seen in follow-up continues to be in the ICU cardio following closely status postcardiac catheterization. Patient reports feeling well with no overnight arrhythmias or issues noted. Patient denies chest pain currently. Patient is tolerating diet and blood sugars have been well-controlled on current regimen. Patient is a transfer out of the ICU today with continued telemetry monitoring. Will need to discuss further with cardiology on discharge planning. Encouraged to increase activity as tolerated. 10/22/2023 Patient is currently sitting on the side of the bed. Awake alert and oriented x 3. No complaints of chest pain or shortness of breath. No headache or dizziness or lightheadedness. Blood pressure still is fairly stable with SBP in 90s. Currently on room air. No dysuria or hematuria. No cough or sputum production. Patient is being continued on aspirin, Brilinta, Farxiga and statins. Also on metoprolol and lisinopril. Cleared from cardiology standpoint. Follow-up with Dr. Erazo in the next 1 to 2 weeks. Laboratory data showed sodium 137 potassium 4.0 chloride 111 bicarb is 20 BUN 15 and creatinine 0.91 and blood sugar 172 and calcium 8.5. Discharge medication reconciliation was done. PHYSICAL EXAMINATION: GENERAL: The patient is alert and oriented x3. Well developed, well nourished. Morbidly obese HEENT: Pupils are round and equally reacting to light. EOMI. No scleral icterus. No conjunctival pallor. Normocephalic, atraumatic. No pharyngeal erythema. No thyromegaly. CARDIOVASCULAR: S1 and S2 muffled, sinus rhythm on the monitor PULMONARY: Chest is clear to auscultation, no wheezing or crackles. ABDOMEN: Soft, obese. Nontender, nondistended, normoactive bowel sounds. No palpable organomegaly. MUSCULOSKELETAL: No joint swelling or deformity. EXTREMITIES: No cyanosis, clubbing, or pedal edema. NEUROLOGICAL: Gross neurological examination did not reveal any focal deficits. SKIN: No rashes. Vital signs: Vital Signs Temp 97.9 F 10/22/23 04:00 Pulse 63 10/22/23 04:00 Resp 17 10/22/23 04:00 BP 98/55 10/22/23 04:00 Pulse Ox 97 02/03/24 04:00 FiO2 Intake & Output 10/21/23 10/22/23 10/22/23 18:59 06:59 18:59 Intake Total 10 120 Output Total 0 Balance 10 120 Weight 118.841 kg Intake: IV 10 Sodium Chloride 0.9% 1, 10 000 ml In Empty Bag 1 bag @ 75 mls/hr [id number] Rx#:[id number] Oral 120 Output: Urine 0 Other: Voiding Method Bedpan Toilet # Voids 0 2 - Labs CBC & Chem 7: 10/22/23 07:49 10/22/23 07:49 Labs: Abnormal Lab Results - Last 24 Hours (Table) 10/21/23 10/21/23 10/21/23 Range/Units 11:13 16:35 20:39 POC Glucose (mg/dL) 194 H 161 H 182 H (70-110) mg/dL 10/22/23 Range/Units 06:00 POC Glucose (mg/dL) 148 H (70-110) mg/dL Time taken greater than 35 minutes in patient care out of which more than 50% was spent counseling and coordination of care. Patient Condition at Discharge: Stable Plan - Discharge Summary New Discharge Prescriptions: New Ticagrelor [Brilinta] 90 mg PO BID #180 tab Metoprolol Tartrate [Lopressor] 25 mg PO BID #180 tab Nitroglycerin Sl Tabs [Nitrostat] 0.4 mg SUBLINGUAL Q5M PRN #25 tab PRN Reason: Chest Pain Atorvastatin [Lipitor] 80 mg PO HS #90 tab lisinopriL [Zestril] 2.5 mg PO DAILY #90 tab Continue rOPINIRole HCL [Requip] 0.25 mg PO HS Omeprazole [PriLOSEC] 20 mg PO DAILY Apixaban [Eliquis] 5 mg PO BID buPROPion XL [Wellbutrin XL] 300 mg PO DAILY Dulaglutide [Trulicity] 0.75 mg SQ Q7D Latanoprost [Latanoprost 0.005%] 1 drop BOTH EYES HS Empagliflozin [Jardiance] 25 mg PO DAILY Discontinued Simvastatin [Zocor] 20 mg PO HS Losartan [Cozaar] 25 mg PO DAILY Aspirin EC [Ecotrin Low Dose] 81 mg PO DAILY Discharge Medication List Apixaban [Eliquis] 5 mg PO BID 10/20/23 [History] Dulaglutide [Trulicity] 0.75 mg SQ Q7D 10/20/23 [History] Empagliflozin [Jardiance] 25 mg PO DAILY 10/20/23 [History] Latanoprost [Latanoprost 0.005%] 1 drop BOTH EYES HS 10/20/23 [History] Omeprazole [PriLOSEC] 20 mg PO DAILY 10/20/23 [History] buPROPion XL [Wellbutrin XL] 300 mg PO DAILY 10/20/23 [History] rOPINIRole HCL [Requip] 0.25 mg PO HS 10/20/23 [History] Atorvastatin [Lipitor] 80 mg PO HS #90 tab 10/22/23 [Rx] Metoprolol Tartrate [Lopressor] 25 mg PO BID #180 tab 10/22/23 [Rx] Nitroglycerin Sl Tabs [Nitrostat] 0.4 mg SUBLINGUAL Q5M PRN #25 tab 10/22/23 [Rx] Ticagrelor [Brilinta] 90 mg PO BID #180 tab 10/22/23 [Rx] lisinopriL [Zestril] 2.5 mg PO DAILY #90 tab 10/22/23 [Rx] Follow up Appointment(s)/Referral(s): Boy Erazo DO [STAFF PHYSICIAN] - 1 Week (Please call to schedule hospital follow up apt. ) Leodan Corrales DO [Primary Care Provider] - 1-2 days (Please call to schedule hospital follow up apt. ) Patient Instructions/Handouts: Heart Attack (DC), After Radial Heart Catheterization (GEN) Discharge Disposition: HOME SELF-CARE
== END 2023-10-22 15:37 | disposition home or self-care (01) | DRG 322 ==
LOC: EC 01:55 → 2SICU 02:05 → 3SCARD 10-21 18:02
PROVIDERS: ADMIT Hospitalist; ATTEND Hospitalist
PROC: B2111ZZ Fluoroscopy of Multiple Coronary Arteries using Low Osmolar Contrast (ICD-10-PCS; 2023-10-20)
PROC: 027035Z Dilation of Coronary Artery, One Artery with Two Drug-eluting Intraluminal Devices, Percutaneous Approach (ICD-10-PCS; principal; 2023-10-20 02:05)
PROC: 02C03ZZ Extirpation of Matter from Coronary Artery, One Artery, Percutaneous Approach (ICD-10-PCS; 2023-10-20 02:05)
PROC: B240ZZ3 Ultrasonography of Single Coronary Artery, Intravascular (ICD-10-PCS; 2023-10-20 02:05)
PROC: 4A023N7 Measurement of Cardiac Sampling and Pressure, Left Heart, Percutaneous Approach (ICD-10-PCS; 2023-10-20 02:05)
DX: I21.09 ST elevation (STEMI) myocardial infarction involving other coronary artery of anterior wall (principal); I50.22 Chronic systolic (congestive) heart failure; I45.2 Bifascicular block; Z68.41 Body mass index [BMI] 40.0-44.9, adult; I11.0 Hypertensive heart disease with heart failure; E66.01 Morbid (severe) obesity due to excess calories; E11.65 Type 2 diabetes mellitus with hyperglycemia; I25.119 Atherosclerotic heart disease of native coronary artery with unspecified angina pectoris; E78.5 Hyperlipidemia, unspecified; K30 Functional dyspepsia; T38.3X6A Underdosing of insulin and oral hypoglycemic [antidiabetic] drugs, initial encounter; I25.5 Ischemic cardiomyopathy; Z91.128 Patient's intentional underdosing of medication regimen for other reason; Z86.711 Personal history of pulmonary embolism; Z79.85 Long-term (current) use of injectable non-insulin antidiabetic drugs; Z79.84 Long term (current) use of oral hypoglycemic drugs; Z79.01 Long term (current) use of anticoagulants; Z79.82 Long term (current) use of aspirin; Z79.899 Other long term (current) drug therapy
CPT/HCPCS: 71045; 80048; 80053; 80061; 83036; 83735; 84484; 85025; 85610; 85730; 92973; 92978; 93005; 93306; 93458; 96374; 96375; 99285

== ENCOUNTER → 2024-05-08 | Outpatient (CLI) | payer MEDICARE ==
--- NOTE | 2024-05-29 13:37 | CT ---
Patient: Jael Vu S Ordering Physician: Unknown, Unknown ID: [id number] Phone, Pager: Phone: N /A Pager: N/A : [phone] Age/Gender: 69Y, F Primary Location: N/A Procedure: CT abdomen w con [place] dy Date: 05/08/2024 12:12:00 PM EXAMINATION TYPE: CT abdomen pelvis w con DATE OF EXAM: 05/09/2024 COMPARISON: None INDICATION: Renal cysts DLP: 1299 mGycm, Automated exposure control for dose reduction was used. CONTRAST: 100 mL of Isovue 300. Study performed with Oral Contrast TECHNIQUE: Axial images were obtained from above the diaphragm to the pubic rami in the axial plane a t 5 mm thick sections. Reconstructed images are reviewed on the computer in the coronal plane. FINDINGS: Limited CT sections are obtained the lung bases. The lung bases are clear. CT ABDOMEN: Liver: Normal Spleen: Normal. There is a splenule in splenic hilum. Pancreas: Atrophic Adrenal glands: The adrenal glands are normal. Gallbladder: Surgically absent Kidneys: No masses are evident. No hydronephrosis is present. Peripelvic cysts are evident well-dem onstrated on the delayed images. Aorta: Vascular calcification is within the aorta. Inferior vena cava: Normal. Loops of bowel within the abdomen and upper pelvis are normal. There are loops of bowel which are incompletely distended or lack oral contrast limiting their evaluation. IMPRESSION: 1. Peripelvic cysts bilateral kidneys. No hydronephrosis or hydroureter
== END | disposition home or self-care (01) ==
LOC: RADCTMAIN 10:10
PROVIDERS: ATTEND Family Medicine
DX: N28.1 Cyst of kidney, acquired (principal); K86.89 Other specified diseases of pancreas
CPT/HCPCS: 74160; 36415; Q9967